=== PATIENT | male | born 1935 | race Caucasian/White ===

== ENCOUNTER → 2016-11-16 | Outpatient (CLI) | payer MEDICARE, OTHER ==
[~2016-11-16] MED LIST: ACTOS 15 MG15 MG PO; ASPIRIN LO-DOSE81 MG PO; ATORVASTATIN CA80 MG PO; BIPAP INH; CYMBALTA30 MG PO; CYMBALTA60 MG PO; DULCOLAX10 MG R; FEOSOL325 MG PO; FLOMAX0.4 MG PO; GLUCERNA SHAKE PO; IMODIUM A-D2 M1 PO; LASIX40 MG PO; MILK OF MA400 MG/5 M PO; NORCO 5-325 TA1 EACH; PLAVIX75 MG PO; PRILOSEC20 MG PO; PRINIVIL OR ZES10 MG PO; PROBIOTIC1 EAC1 PO; THERAGRAN-M1 TAB PO; TYLENOL EXTRA500 MG PO; ULTRAM50 MG PO; VITAMIN D-32000 UNI1 PO; ZANTAC (NON-FO150 MG PO
== END | disposition disaster alternative care site (69) ==
LOC: GRAD 16:20
DX: I65.29 Occlusion and stenosis of unspecified carotid artery (principal); I65.23 Occlusion and stenosis of bilateral carotid arteries
CPT/HCPCS: Q9967

== ENCOUNTER → 2016-11-16 | Outpatient (CLI) | payer MEDICARE, OTHER ==
[2016-11-16 13:31] LABS: BASOPHIL % 0.3 %; EOSINOPHIL # 0.1 K/uL (0.0-0.5); EOSINOPHIL % 2.1 %; IMMATURE GRANULOCYTE % 0.3 %; LYMPHOCYTE # 1.3 K/uL (0.8-4.0); LYMPHOCYTE % 20.5 %; MCH 28.5 pg (27.0-34.0); MCHC 33.3 gm/dL (32.0-36.5); MCV 85.5 fl (83.0-98.0); MONOCYTE # 0.5 K/uL (0.0-1.0); MONOCYTE % 7.9 %; NEUTROPHIL # (ANC) 4.3 K/uL (1.4-9.0); NEUTROPHIL % 68.9 %; NRBC % 0 /100WBC (0-0.00); PLATELET COUNT 146 K/uL (150-450); RDW-CV 14.2 % (11.9-14.6); WBC 6.3 K/uL (4.0-11.0)
[2016-11-16 13:37] LABS: RBC 4.21 M/uL (3.50-5.50)
[2016-11-16 13:45] LABS: ANION GAP 12.4 (10.0-19.0); CREATININE 1.3 mg/dL (0.6-1.3); POTASSIUM 4.4 mMol/L (3.7-5.1)
== END ==
LOC: LNHI 13:27
PROVIDERS: Internal Medicine Interventional Cardiology
DX: I25.10 Atherosclerotic heart disease of native coronary artery without angina pectoris (principal); I35.0 Nonrheumatic aortic (valve) stenosis; E11.00 Type 2 diabetes mellitus with hyperosmolarity without nonketotic hyperglycemic-hyperosmolar coma (NKHHC); I10 Essential (primary) hypertension

== ENCOUNTER 2016-11-29 14:00 | Inpatient (IN) | payer MEDICARE, OTHER, MEDICAID ==
[~2016-11-29] VITALS: Ht 182.9 cm; Wt 113.6 kg
--- NOTE | ~2016-11-29 | DS ---
PATIENT'S NAME: MAGNUS GALVEZ [facility] AGE: 80 Y [address] ROOM: [id number] [place], [place] [address] LOCATION: GPCU ADMIT DATE: 12/06/2016 Discharge Summary DISCHARGE DATE: 12/08/2016 FAMILY PHYSICIAN: Fernando Lui MD ATTENDING PHYSICIAN: Kwame Hamilton FINAL DIAGNOSIS: Right internal carotid artery stenosis. SECONDARY DIAGNOSES: 1. Essential hypertension. 2. Diabetes mellitus type 2. 3. Obstructive sleep apnea. 4. Benign prostatic hypertrophy. 5. Iron-deficiency anemia. PROCEDURES: Right carotid endarterectomy with bovine patch by Dr. Hamilton on 12/06/2016. CONSULTATIONS: Hospitalist for medical management. HOSPITAL COURSE: This is an 80-year-old male admitted to [facility] on 12/04/2016 after right carotid endarterectomy. The patient was found to have high-grade right internal carotid artery stenosis, which was asymptomatic on CTA. See history and physical for full patient details. During the procedure, the patient was found to have nearly occlusive lesion of the right internal carotid artery. The patient tolerated the procedure well and after recovery was admitted to the Progressive Care Unit for monitoring on telemetry, vitals, labs, surgical site, pain management, medication administration, and nursing assistance. Hospitalists were consulted for medication management. The patient's diet was advanced as tolerated after surgery. His IV Ancef was continued for 24 hours and p.r.n. pain medications were ordered. The patient was also continued on his Lipitor, aspirin, and Plavix. The patient was started on a mild sliding scale insulin a.c. h.s. On postop day #1, the patient was found to be neurologically intact and he denied any difficulty swallowing or speaking. He was found to have ecchymosis to his right neck with edema consistent with hematoma. This site was soft with no firm hematoma. It was decided at that point in time to keep the patient for an additional day to monitor ecchymosis to right neck. On postop day #2, his hematoma stable with no change in size, pain was well-controlled, and the patient without any deficit. The patient is in stable condition to be discharged to [facility]. DISCHARGE ORDERS: The patient is to be discharged on his previous diet. He is to avoid heavy lifting or driving for 2 weeks. He is to leave his incision open to air. He is to follow up with Dinora Toussaint APRN at [facility] PATIENT'S NAME: MAGNUS GALVEZ [facility] AGE: 80 Y [address] ROOM: [id number] [place], [place] [address] LOCATION: GPCU ADMIT DATE: 12/06/2016 Discharge Summary DISCHARGE DATE: 12/08/2016 FAMILY PHYSICIAN: Fernando Lui MD ATTENDING PHYSICIAN: Kwame Hamilton in 2 weeks. He is to report any concerns or signs or symptoms of infection including redness, swelling, fevers, chills, or drainage. He is to report any symptoms of TIA or stroke. DISCHARGE MEDICATIONS: 1. Actos 15 mg p.o. everyday before breakfast. 2. Lipitor 80 mg p.o. daily. 3. Cymbalta 60 mg p.o. daily. 4. Cymbalta 30 mg p.o. daily for a total of 90 mg. 5. Dulcolax suppository 10 mg rectally every 24 hours as needed constipation. 6. Feosol 325 mg p.o. daily. 7. Lasix 40 mg p.o. daily. 8. Lisinopril 10 mg p.o. daily. 9. Imodium 2 mg p.o. twice daily as needed diarrhea. 10. Milk of magnesia 30 mL orally every 24 hours as needed constipation. 11. Prilosec 20 mg p.o. daily. 12. Plavix 75 mg p.o. daily. 13. Lactobacillus combination 1 tablet p.o. daily. 14. Flomax capsule Extended Release 0.4 mg p.o. daily. 15. Tylenol 500 mg p.o. every 6 hours as needed mild pain. 16. Ultram 100 mg p.o. every 8 hours as needed pain. 17. Zantac 150 mg p.o. daily. 18. Aspirin 81 mg p.o. daily. 19. BiPAP inhalation per home settings. 20. [place] 5/325 one to two tabs every 4 hours as needed pain. DISPOSITION: The patient is to be discharged home in stable condition. He is to follow discharge orders as prescribed. Education about discharge including incision care, medications, prescriptions, diet, activity, and followup instructions given to the patient. The patient verbalized understanding of the plan. No further questions or concerns. DINORA TOUSSAINT APRN FOR KWAME HAMILTON MD TO/edinl /[id number] d: 12/12/164 t: 12/12/16 0848, DISCHARGE SUMMARY
--- NOTE | ~2016-11-29 | OR ---
PATIENT'S NAME: MAGNUS GALVEZ [facility] AGE: 80 Y [address] ROOM: [place] [address] [facility] ADMIT DATE: 12/06/2016 OR/Procedure Report DISCHARGE DATE: FAMILY PHYSICIAN: MICHAEL JORGENSEN MD ATTENDING PHYSICIAN: KWAME HAMILTON SURGEON: Kwame Hamilton MD DIRECTOR CONSTRUCTION SERVICES: DATE OF PROCEDURE: 12/06/2016 PREOPERATIVE DIAGNOSIS: High-grade right internal carotid artery stenosis. POSTOPERATIVE DIAGNOSIS: High-grade right internal carotid artery stenosis. PROCEDURE: Right carotid endarterectomy with bovine pericardial patch. CASTING MACHINE CONTROL BOARD OPERATOR: Dinora Peterson, nurse practitioner. She provided retraction as well as closure of the wound. ANESTHESIA: General. ESTIMATED BLOOD LOSS: 150 mL. OPERATIVE FINDINGS: Neurologically intact at the end of the case. Near- occlusive lesion of the right ICA. DESCRIPTION OF PROCEDURE: The patient was brought to the operating room and placed supine on the operating table, prepped and draped in a sterile manner. Preoperative time-out was performed. The patient received preoperative antibiotics. We made a standard incision along the anterior border of the sternocleidomastoid on the right. Dissected through the platysma. Identified the internal jugular vein. Identified the facial vein which was then transected and ligated. We then dissected out the common, external, and internal carotid artery. We gave 5000 units of heparin. We clamped on all 3 major vessels and performed it by pressure ensuring that there was adequate pressure and that it did not require a shunt. We then made an arteriotomy from the common to the internal. We then removed the plaque in its entirety. Then, did a standard 6-0 bovine pericardial patch using two running 6-0 Perryman sutures. Flow was confirmed in all 3 vessels with the use of Doppler. Heparin was reversed with the use of protamine. Deep layers were closed with 2-0 and 3-0 Vicryls. Skin was closed with running 4-0 Monocryl. The patient tolerated the procedure well, awoke in the operating room neurologically intact, and transferred to the recovery room and then up to the floor. PATIENT'S NAME: MAGNSU GALVEZ [facility] AGE: 80 Y [address] ROOM: [place] [address] LOCATION: GPCU ADMIT DATE: 12/06/2016 OR/Procedure Report DISCHARGE DATE: FAMILY PHYSICIAN: MICHAEL JORGENSEN MD ATTENDING PHYSICIAN: KWAME HAMILTON KWAME HAMILTON MD FKM/modl /[id number] d: 12/06/16 2255 t: 12/12/16 1155, OPERATIVE SUMMARY
[2016-11-29] MEDS ORDERED: ACTOS 15 MG15 MG PO (14:34)
[2016-11-29] MEDS ORDERED: ATORVASTATIN CA80 MG PO (14:35)
[2016-11-29] MEDS ORDERED: VITAMIN D-32000 UNI1 PO (14:35)
[2016-11-29] MEDS ORDERED: CYMBALTA60 MG PO (14:38)
[2016-11-29] MEDS ORDERED: CYMBALTA30 MG PO (14:39)
[2016-11-29] MEDS ORDERED: DULCOLAX10 MG R (14:40)
[2016-11-29] MEDS ORDERED: FEOSOL325 MG PO (14:40)
[2016-11-29] MEDS ORDERED: GLUCERNA SHAKE PO (14:44)
[2016-11-29] MEDS ORDERED: LASIX40 MG PO (14:45)
[2016-11-29] MEDS ORDERED: PRINIVIL OR ZES10 MG PO (14:46)
[2016-11-29] MEDS ORDERED: IMODIUM A-D2 M1 PO (14:47)
[2016-11-29] MEDS ORDERED: THERAGRAN-M1 TAB PO (14:48)
[2016-11-29] MEDS ORDERED: MILK OF MA400 MG/5 M PO (14:48)
[2016-11-29] MEDS ORDERED: PLAVIX75 MG PO (14:49)
[2016-11-29] MEDS ORDERED: PROBIOTIC1 EAC1 PO (14:49)
[2016-11-29] MEDS ORDERED: PRILOSEC20 MG PO (14:49)
[2016-11-29] MEDS ORDERED: FLOMAX0.4 MG PO (14:50)
[2016-11-29] MEDS ORDERED: TYLENOL EXTRA500 MG PO (14:51)
[2016-11-29] MEDS ORDERED: ZANTAC (NON-FO150 MG PO (14:51)
[2016-11-29] MEDS ORDERED: ULTRAM50 MG PO (14:51)
[2016-11-29] MEDS ORDERED: ASPIRIN LO-DOSE81 MG PO (14:53)
[2016-11-29] MEDS ORDERED: BIPAP INH (15:54)
[2016-12-06 18:25] LABS: BASOPHIL % 0.1 %; HEMATOCRIT 31.4 % (33.0-50.0); HEMOGLOBIN 10.5 g/dL (11.0-16.0); IMMATURE GRANULOCYTE % 0.3 %; LYMPHOCYTE # 0.6 K/uL (0.8-4.0); LYMPHOCYTE % 5.7 %; MCH 29.1 pg (27.0-34.0); MCHC 33.4 gm/dL (32.0-36.5); MONOCYTE # 0.3 K/uL (0.0-1.0); MONOCYTE % 2.5 %; MPV 10.4 fl (9.4-12.4); NEUTROPHIL # (ANC) 9.1 K/uL (1.4-9.0); NEUTROPHIL % 91.4 %; NRBC % 0 /100WBC (0-0.00); PLATELET COUNT 143 K/uL (150-450); RBC 3.61 M/uL (3.50-5.50); RDW-CV 14.5 % (11.9-14.6)
[2016-12-06 18:34] LABS: ANION GAP 10.8 (10.0-19.0); CALCIUM 8.3 mg/dL (8.5-10.5); CREATININE 1.1 mg/dL (0.6-1.3); POTASSIUM 4.8 mMol/L (3.7-5.1)
--- NOTE | 2016-12-06 19:48 | NUR ---
Significant Event:ARRIVED FROM PACU AT 1630. DRESSING TO RIGHT NECK INTACT WITH OLD DRAINAGE. NECK MEASURES AT 46.5 CM. ALERT AND ORIENTED X3. VOIDS LIGHT SOPHIA URINE PER URINAL. PT IS A FULL LIFT, WHEEL CHAIR IS IN ROOM. ART LINE TO RIGHT ARM WITH NO PROBLEMS. EATING AND DRINKING WITHOUT DIFFICULTIES. Follow up:
[2016-12-07 04:20] LABS: ANION GAP 11.5 (10.0-19.0); CALCIUM 8.2 mg/dL (8.5-10.5); CREATININE 1.1 mg/dL (0.6-1.3); POTASSIUM 4.5 mMol/L (3.7-5.1)
[2016-12-07 04:33] LABS: BASOPHIL % 0.1 %; HEMOGLOBIN 9.6 g/dL (11.0-16.0); IMMATURE GRANULOCYTE # 0.1 K/uL (0.0-0.3); IMMATURE GRANULOCYTE % 0.6 %; LYMPHOCYTE # 0.8 K/uL (0.8-4.0); LYMPHOCYTE % 7.7 %; MCH 27.9 pg (27.0-34.0); MCV 87.2 fl (83.0-98.0); MONOCYTE # 0.6 K/uL (0.0-1.0); MONOCYTE % 5.6 %; NEUTROPHIL # (ANC) 8.4 K/uL (1.4-9.0); NRBC % 0 /100WBC (0-0.00); PLATELET COUNT 136 K/uL (150-450); RBC 3.44 M/uL (3.50-5.50); RDW-CV 14.6 % (11.9-14.6); WBC 9.8 K/uL (4.0-11.0)
--- NOTE | 2016-12-07 05:18 | NUR ---
Significant Event: A/O X 3. HAS REMAINED IN BED, HE IS WHEELCHAIR BOUND. ALL VSS, HAS BEEN ON 2L WITH 2L BLEED VIA CPAP WHEN SLEEPING. NECK EDEMATOUS MEASURING 54 CM, SHADOW DRAINAGE HAS INCREASED SLIGHTLY. HAS NOT COMPLAINED OF ANY SWALLOWING OR SPEECH DIFFICULTIES, MOVES KNECK WITHOUT DIFFICULTY. IV FLUIDS D5 DC'D. ART LINE D/C'D AT 0500. 1 NORCO GIVEN X 2 LAST AT 0345. Follow up:
--- NOTE | 2016-12-07 05:25 | NUR ---
VERBAL ORDERS WERE RECIEVED FOR DNR/DNI BUT PHYSICIAN STILL NEEDS TO SIGN. PAPERS IN CHART.
--- NOTE | 2016-12-07 11:58 | NUR ---
Called and spoke with Kimberly at [facility] and told her patient not ready today and will probably be this w/e. She says Moisés already called her and he indicated his son would be able to transport him. Introduced self and role of care management to Moisés. He lives at [facility] in [place]. He says his son Mahesh will be able to transport him. He does not anticipate discharge needs at this time. Notes on chart with Kimberly's (at [facility]) phone number for report and fax # for orders. Left M for his son Mahesh to confirm he can transport patient. Will follow.
--- NOTE | 2016-12-07 15:39 | NUR ---
Significant Event: A/O X 3. AFEBRILE. LT. NECK OPEN TO AIR, APPROX. NO NEW SWELLING NOTED. AREA VERY ECHOMOTIC. AFEBRILE. ASHWIN. HR SR IN 70'S. SBP 128-149. TYLENOL FOR PAIN CONTROL. Follow up: CONT. TO MONITER CAROTID STATUS. POSSIBLE DISM. TOMORROW.
--- NOTE | 2016-12-08 04:49 | NUR ---
Significant Event: A/0 X 3, AFEBRILE. ALL VSS ON RA, EVEN RA WITH CPAP HAS BEEN FINE. LAST MEASUREMENT OF CIRCUMFERENCE OF NECK WAS 57 CM WITH NEW ECCHYMOSIS MARKED. DAY SHIFT MEASURED 54 CM. REMAINS OPEN TO AIR WITH SLIGHT OOZING AT BEGGINING OF SHIFT DUE TO AMBULATION BUT THAT STOPPED QUICKLY. MINIMAL APPETITE, NO SUCCESS AT BM. 2 TYLENOL GIVEN X 2 WITH LAST AT 0125 DUE TO A HEADACHE, NEURO ASSESSMENT AT THAT TIME FOUND NO COMPLICATIONS. Follow up: POSSIBLE D/C TODAY.
[2016-12-08 05:27] LABS: BASOPHIL % 0.2 %; EOSINOPHIL # 0.1 K/uL (0.0-0.5); EOSINOPHIL % 1.5 %; HEMATOCRIT 28.1 % (33.0-50.0); HEMOGLOBIN 9.2 g/dL (11.0-16.0); IMMATURE GRANULOCYTE % 0.3 %; LYMPHOCYTE # 0.7 K/uL (0.8-4.0); LYMPHOCYTE % 10.4 %; MCH 28.8 pg (27.0-34.0); MCHC 32.7 gm/dL (32.0-36.5); MCV 87.8 fl (83.0-98.0); MONOCYTE # 0.6 K/uL (0.0-1.0); MONOCYTE % 8.7 %; MPV 10.6 fl (9.4-12.4); NEUTROPHIL # (ANC) 5.2 K/uL (1.4-9.0); NEUTROPHIL % 78.9 %; NRBC % 0 /100WBC (0-0.00); PLATELET COUNT 129 K/uL (150-450); RDW-CV 14.8 % (11.9-14.6); WBC 6.5 K/uL (4.0-11.0)
[2016-12-08] MEDS ORDERED: NORCO 5-325 TA1 EACH (12:36)
== END 2016-12-08 13:00 | disposition disaster alternative care site (69) | DRG 39 ==
LOC: GPCU 12-06 07:35
PROVIDERS: ADMIT Surgery Vascular Surgery
PROC: 03UK0JZ Supplement Right Internal Carotid Artery with Synthetic Substitute, Open Approach (ICD-10-PCS; principal; 2016-12-06)
PROC: 03CK0ZZ Extirpation of Matter from Right Internal Carotid Artery, Open Approach (ICD-10-PCS; principal; 2016-12-06)
DX: I65.22 Occlusion and stenosis of left carotid artery (principal); E11.22 Type 2 diabetes mellitus with diabetic chronic kidney disease; E11.40 Type 2 diabetes mellitus with diabetic neuropathy, unspecified; I25.10 Atherosclerotic heart disease of native coronary artery without angina pectoris; E78.5 Hyperlipidemia, unspecified; D50.9 Iron deficiency anemia, unspecified; Z87.891 Personal history of nicotine dependence; G47.33 Obstructive sleep apnea (adult) (pediatric); N40.0 Benign prostatic hyperplasia without lower urinary tract symptoms; Z66 Do not resuscitate; E66.9 Obesity, unspecified; Z68.33 Body mass index [BMI] 33.0-33.9, adult; Z86.73 Personal history of transient ischemic attack (TIA), and cerebral infarction without residual deficits; I12.9 Hypertensive chronic kidney disease with stage 1 through stage 4 chronic kidney disease, or unspecified chronic kidney disease; N18.9 Chronic kidney disease, unspecified
CPT/HCPCS: J0690; J1100; J1644; J1650; J2001; J2405; J2720; J3480; J7030